=== PATIENT | male | born 1980 | race Caucasian/White ===

== ENCOUNTER 2017-02-05 09:51 | Emergency (ER) | payer OTHER | END 2017-02-05 12:44 | disposition home or self-care (01) | LOC: ER1 09:51 | DX: S00.03XA Contusion of scalp, initial encounter (principal); W22.8XXA Striking against or struck by other objects, initial encounter; Y92.69 Other specified industrial and construction area as the place of occurrence of the external cause; Y99.0 Civilian activity done for income or pay | CPT/HCPCS: 70450; 99283 ==

== ENCOUNTER → 2021-11-23 | Outpatient (CLI) | payer BC | LOC: CT 10:40 | DX: R10.31 Right lower quadrant pain (principal); K76.0 Fatty (change of) liver, not elsewhere classified | CPT/HCPCS: 36415; 82565; Q9967 ==